=== PATIENT | female | born 1930 | race Caucasian/White ===

== ENCOUNTER 2017-07-02 20:09 | Emergency (ER) | payer MEDICARE ==
[~2017-07-02] VITALS: Ht 160 cm; Wt 50.9 kg
[~2017-07-02 20:09] MED LIST: AMLODIPINE BESYLATE PO; ASPI81TA83 OR; BIOTPOW20 PO; CALCTAB93 PO; PAROXITINE PO; PERC5TAB8 OR; PERC7.5T8 OR; PERCOCET PO; ROPINIROLE PO; SUPETAB27 PO; VITAMIN C PO; VITAMIN D 3 PO; VITAMIN E PO
[2017-07-02] MEDS ORDERED: BUSP5TA PO (21:07)
[2017-07-02] MEDS ORDERED: POTA20TA6 PO (21:07)
[2017-07-02] MEDS ORDERED: AMLO10TA2 PO (21:07)
[2017-07-02] MEDS ORDERED: NAME14CA PO (21:07)
[2017-07-02] MEDS ORDERED: TORS10TA3 PO (21:07)
[2017-07-02] MEDS ORDERED: PARO20TA3 PO (21:07)
[2017-07-02] MEDS ORDERED: ARIC1TAB2 PO (21:07)
[2017-07-02 21:44] LABS: BASO % 0.4 % (0.0-1.0); EOS # 0.1 K/mm3 (0.0-0.50); EOS % 1.7 % (0.0-3.0); LARGE UNSTAINED CELL # 0.1 K/mm3 (0.0-0.4); LARGE UNSTAINED CELL % 0.7 % (0.0-4.0); LYMPH # 0.9 K/mm3 (1.5-4.5); LYMPH % 13.5 % (24.0-44.0); MEAN CORPUSCULAR HEMOGLOBIN 31.6 pg (27.0-33.0); MEAN CORPUSCULAR HGB CONC 34.3 g/dl (32.0-36.5); MEAN CORPUSCULAR VOLUME 92.2 fl (80.0-96.0); MONO # 0.5 K/mm3 (0.0-0.8); MONO % 6.7 % (0.0-5.0); NEUTROPHILS # 5.3 K/mm3 (1.8-7.7); NEUTROPHILS % 77.1 % (36.0-66.0); PLATELET COUNT, AUTOMATED 290 k/mm3 (150-450); RED CELL DISTRIBUTION WIDTH 12.9 % (11.5-14.5); WHITE BLOOD COUNT 6.9 K/mm3 (4.0-10.0)
[2017-07-02 21:52] LABS: INR 0.93
[2017-07-02 22:07] LABS: METHADONE URINE NEGATIVE (NEGATIVE)
[2017-07-02 22:11] LABS: ALBUMIN 4.5 GM/DL (3.2-5.2); ALBUMIN/GLOBULIN RATIO 1.22 (1.00-1.93); ALKALINE PHOSPHATASE 105 U/L (45-117); ALT/SGPT 27 U/L (12-78); AMYLASE 68 U/L (25-115); ANION GAP 7 MEQ/L (8-16); AST/SGOT 22 U/L (15-37); BILIRUBIN,TOTAL 0.7 MG/DL (0.2-1.0); BLOOD UREA NITROGEN 11 MG/DL (7-18); CARBON DIOXIDE LEVEL 32 MEQ/L (21-32); CHLORIDE LEVEL 98 MEQ/L (98-107); CREATININE FOR GFR 0.77 MG/DL (0.55-1.02); GLOMERULAR FILTRATION RATE > 60.0 (>32); GLUCOSE, FASTING 109 MG/DL (83-110); MAGNESIUM LEVEL 2.1 MG/DL (1.8-2.4); POTASSIUM SERUM 3.1 MEQ/L (3.5-5.1); SODIUM LEVEL 137 MEQ/L (136-145); TOTAL PROTEIN 8.2 GM/DL (6.4-8.2)
[2017-07-02] MEDS ORDERED: POTASSIUM CHLORIDE 10 MEQ SR TABLET PO ONE (23:00)
[2017-07-02] MEDS ORDERED: PHENYLEPHRINE 2.5% OPHTH SOL 2ML OS ONE (23:15)
[2017-07-02] MEDS ORDERED: MULTIVITAMIN -ADULT INJECTION 10 ML, THIAMINE INJection 100 MG, FOLIC ACID 1 MG in NS 1... IV ONE (23:15)
[2017-07-02] MEDS ORDERED: TETRACAINE 0.5% OPHTH SOLN 4ML OS ONE (23:15)
[2017-07-02] MEDS ORDERED: FLUORESCEIN OPHTH 1 MG STRIP As Ordered ONE (23:22)
[2017-07-02] MEDS ORDERED: TROPICAMIDE 1% OPHTH SOLN 2ML OS ONE (23:30)
[2017-07-03] MEDS ORDERED: TETANUS/DIPHTHERIA TOX ADSORB ADULT 0.5ML SYR/VIAL (90714) IM ONE
[2017-07-03] MEDS ORDERED: PERCOCET 5MG/325MG TAB PO ONE (00:15)
--- NOTE | 2017-07-03 00:30 | REPUSA ---
HISTORY: Trauma. COMPARISON: TECHNIQUE: Multiple thin section helically-acquired axially-displayed and helically acquired coronall y displayed computed tomographic images of the face are obtained from the mandible through the fronta l sinuses, with images obtained at soft tissue and bone window. 2D reformatted images were performed. FINDINGS: Normal bony mineralization. Acute displaced fractures of the anterior and posterior puga of the left maxillary sinus. Acute nondisplaced fracture of the left zygomatic arch. Acute displaced fractures of the left orbital floor. No associated muscular entrapment. Complete opacification of the left maxillary sinus. Normal oral and nasal cavities. Normal infratemporal fossa and deep parapharyngeal spaces with normal muscles of mastication. Normal parotid and submandibular glands. IMPRESSION: Acute displaced fractures of the left maxillary sinus and the left orbital floor. Opacification of the left maxillary sinus. No muscular entrapment. Thank you for your kind referral of this patient
--- NOTE | 2017-07-03 00:40 | REPUSA ---
CLINICAL HISTORY: Head trauma. TECHNIQUE: Multiple axial brain CT scan sections were obtained from base to vertex without contrast a dministration. COMMENTS: Moderate chronic ischemic white matter disease. Secretions in the left ethmoid air cells. Chronic mucosal inflammatory changes in the left ethmoid air cells. There is no evidence of skull fracture. The study shows normal configuration of sella turcica. There are no intra or extra-axial collections. There is no mass effect or midline shift. There is no evidence of hematoma formation. No hydrocephalus is present. No abnormal calcifications are noted. No acute significant abnormalities are seen either in the posterior fossa or supratentorial compartme nt. The remaining sinuses and mastoid air cells are patent. IMPRESSION: Chronic mucosal inflammatory changes in the left ethmoid air cells. Secretions in the left ethmoid air cells. No evidence of acute intracranial pathology. Thank you for your kind referral of this patient.
[2017-07-03 01:28] VITALS: BP 147/74
--- NOTE | 2017-07-03 08:37 | ECGEPIP ---
Stationary ECG Study [facility] - ED Test Date: 2017-07-02 Pat Name: SKYLAR BACH Department: Room: - Gender: F [employer]: herberth : 1930 Requested By: PALLAVI STEEN Order Number: [id number] Reading MD: Manuel Maciel Measurements Intervals [place] Rate: 60 P: 70 DC: 178 QRS: -61 QRSD: 108 T: 67 QT: 440 QTc: 440 Interpretive Statements SINUS RHYTHM WITH OCCASIONAL SUPRAVENTRICULAR PREMATURE COMPLEXES LEFT ANTERIOR FASCICULAR BLOCK LEFT VENTRICULAR HYPERTROPHY AND ST-T CHANGE, NEW COMPARED TO 04/27/12 Electronically Signed On 07-03-2017 8:37:17 EDT by Manuel Maciel
--- NOTE | 2017-07-03 09:14 | REP ---
PORTABLE CHEST: AP portable view of the chest is performed. COMPARISON: 04/27/2012. There is cardiomegaly and pulmonary venous hypertension. There is no acute infiltrate or pneumothorax. The visualized osseous structures appear intact. Signed by Tate Louis MD 07/03/2017 05:29 P
== END 2017-07-03 01:32 | disposition short-term general hospital (02) ==
LOC: M ED 20:09 → EDBD 20:09 → M ED 07-03 01:32
DX: S02.40DA Maxillary fracture, left side, initial encounter for closed fracture (principal); S02.32XA Fracture of orbital floor, left side, initial encounter for closed fracture; W01.0XXA Fall on same level from slipping, tripping and stumbling without subsequent striking against object, initial encounter; Y92.410 Unspecified street and highway as the place of occurrence of the external cause; Y93.K1 Activity, walking an animal; Y99.8 Other external cause status; H21.02 Hyphema, left eye; F41.9 Anxiety disorder, unspecified; F33.9 Major depressive disorder, recurrent, unspecified; G25.81 Restless legs syndrome; Z79.899 Other long term (current) drug therapy
CPT/HCPCS: 36415; 70450; 70486; 71010; 80053; 80307; 81001; 82150; 82550; 82553; 83605; 83690; 83735; 84484; 85025; 85610; 85730; 86850; 86900; 86901; 90471; 90714; 93005; 93041; 94760; 96374; 99285; G0480; J3411

== ENCOUNTER 2019-07-25 08:06 | Emergency (ER) | payer MEDICARE ==
[~2019-07-25] VITALS: Ht 170.2 cm; Wt 63.6 kg
[~2019-07-25 08:06] MED LIST changes: +AMLO10TA5 PO; +ARIC1TAB2 PO; +BUSP5TA PO; +NAME14CA PO; +PARO20TA3 PO; +POTA20TA6 PO; +TORS10TA3 PO
[2019-07-25] MEDS ORDERED: ALIG4CAP PO (08:20)
[2019-07-25] MEDS ORDERED: QUET1TAB7 PO (08:20)
[2019-07-25] MEDS ORDERED: BIOT1CAP2 PO (08:20)
[2019-07-25] MEDS ORDERED: QC A650T3 PO (08:20)
[2019-07-25] MEDS ORDERED: QUET5TAB PO (08:21)
[2019-07-25] MEDS ORDERED: IBUPROFEN 600 MG TAB PO ONE (09:15)
--- NOTE | 2019-07-25 10:09 | REP ---
RIGHT RIB SERIES: Five views including PA chest. HISTORY: Injury in a fall. COMPARISON CHEST X-RAY: July 02, 2017. FINDINGS: Moderate cardiomegaly is observed. Monitoring electrodes are seen on the chest x-ray. There is no evidence of pneumothorax or hydrothorax. The aorta is tortuous and calcific. Multiple views of the ribs show diffuse osteopenia. There is an old appearing fracture of the lateral segment right 7th rib. No acute rib fracture is appreciated. There is evidence of an old anterolateral rib fracture on the left involving rib number seven and possibly six. IMPRESSION: Moderate cardiomegaly. Old bilateral rib fractures. No acute rib fracture is appreciated. Electronically Signed by Benny Ryder MD 07/25/2019 06:20 P
--- NOTE | 2019-07-25 10:10 | REP ---
LEFT KNEE SERIES: Five views. HISTORY: Injury in a fall. FINDINGS: Five views of the left knee demonstrate diffuse osteopenia. There is chondrocalcinosis. There is nonarticular spurring at the superior pole the patella on the lateral radiograph. There is prepatellar soft-tissue swelling. No fractures seen. IMPRESSION: Degenerative changes. No fracture noted. Prepatellar soft-tissue swelling. Electronically Signed by Benny Ryder MD 07/25/2019 06:20 P
--- NOTE | 2019-07-25 11:23 | REP ---
CT brain: 07/25/2019. Indication: Head trauma. Comparison: 07/02/2017. Technique: Unenhanced axial CT images of the brain were obtained from skull base to vertex. Findings: There is no acute intracranial hemorrhage, acute cortical infarction, mass effect, hydrocephalus or acute calvarial fracture. Age-related volume loss is present. Chronic-appearing bilateral basal ganglia lacunar infarctions are present. Patchy areas of white matter hypoattenuation are noted most consistent with sequelae of chronic small vessel disease. Impression: No acute intracranial process. Sequelae of chronic microangiopathic ischemic disease. Electronically Signed by Bruno Vilchis DO 07/25/2019 11:15 A
--- NOTE | 2019-07-25 11:51 | REP ---
CT chest without contrast: History: Injury in a fall. Rib trauma. Comparison rib radiographs are from this date. CT findings: There is no evidence of pneumothorax or hydrothorax. No pulmonary contusion is appreciated. The lung mcghee are essentially clear. There is some mild scattered pleural plaquing. No mediastinal hematoma or mass lesion is observed. The thoracic aorta is ectatic and somewhat tortuous. The ascending aortic root measures 4.8 cm in greatest AP dimension at the level of the right main pulmonary artery. No pericardial effusion is seen. There are old healed fractures seen in the left anterior 2nd, 3rd, and 4th ribs. No acute rib fracture is appreciated. Exam is otherwise unremarkable. Impression: Ectatic thoracic aorta, aortic root measuring 4.8 cm in AP dimension. Mild pleural plaquing. Cardiomegaly. Old left anterior rib fractures, rib numbers 2-4. No acute rib fracture seen. Otherwise negative. Electronically Signed by Benny Ryder MD 07/25/2019 06:23 P
[2019-07-25 12:01] VITALS: BP 132/81
--- NOTE | 2019-07-26 20:43 | ED PDOC ---
Post-Departure Follow-Up arik son faxed formal report of ct chest for fu fainag Neil Daly MD Jul 26, 2019 20:43
== END 2019-07-25 12:04 | disposition home or self-care (01) ==
LOC: M ED 08:06
DX: S80.02XA Contusion of left knee, initial encounter (principal); W01.0XXA Fall on same level from slipping, tripping and stumbling without subsequent striking against object, initial encounter; Y92.480 Sidewalk as the place of occurrence of the external cause; Y93.01 Activity, walking, marching and hiking; R07.81 Pleurodynia; M25.762 Osteophyte, left knee; M85.88 Other specified disorders of bone density and structure, other site; I67.82 Cerebral ischemia; F03.90 Unspecified dementia, unspecified severity, without behavioral disturbance, psychotic disturbance, mood disturbance, and anxiety; I11.9 Hypertensive heart disease without heart failure; Z78.0 Asymptomatic menopausal state; Z79.899 Other long term (current) drug therapy; Z87.81 Personal history of (healed) traumatic fracture; Z87.891 Personal history of nicotine dependence